=== PATIENT | male | born 1980 | race Caucasian/White ===

== ENCOUNTER 2020-06-04 15:42 | Emergency (ER) | payer MEDICAID ==
[~2020-06-04] VITALS: Ht 172.7 cm; Wt 78.9 kg
--- NOTE | 2020-06-04 15:55 | NUR ---
PT IS IN ROOM #1B. DR CREWS EVALUATED THE PT.
[2020-06-04] MEDS ORDERED: ASPIRIN 325 MG TABLET ONE (16:11)
[2020-06-04] MEDS ORDERED: NITROGLYCERIN 0.4 MG/TAB BOTTLE SL ONE ×2 (16:11→16:15)
[2020-06-04] MEDS ORDERED: ASPIRIN 325 MG TABLET PO ONE (16:15)
[2020-06-04] MEDS ORDERED: IV NORMAL SALINE 1000 ML BAG IV ONE (16:15)
[2020-06-04 16:27] LABS: BASOPHILS % (AUTO) 0.5 % (0.0-2.0); EOSINOPHILS # (AUTO) 0.4 K/uL (0.0-0.7); EOSINOPHILS % (AUTO) 7.5 % (0.0-7.0); HEMATOCRIT 43.7 % (36.7-47.1); HEMOGLOBIN 14.9 g/dL (12.5-16.3); LYMPHOCYTES % (AUTO) 36.1 % (20.5-51.5); MEAN CORPUSCULAR HEMOGLOBIN 30.1 uug (23.8-33.4); MEAN CORPUSCULAR HGB CONC 34 g/dL (32.5-36.3); MEAN CORPUSCULAR VOLUME 87.9 fL (73.0-96.2); MONOCYTES # (AUTO) 0.3 K/uL (2.0-10.0); NEUTROPHILS # (AUTO) 2.8 K/uL (1.8-8.9); NEUTROPHILS % (AUTO) 49.9 % (38.5-71.5); PLATELET COUNT (AUTO) 269 K/uL (152-348); RED BLOOD CELL COUNT(AUTO) 4.96 MIL/uL (4.06-5.63); WHITE BLOOD COUNT (AUTO) 5.6 K/uL (3.6-10.2)
[2020-06-04 16:33] LABS: POTASSIUM 3.8 mmol/L (3.5-5.1)
[2020-06-04 16:46] LABS: BILIRUBIN,DIRECT 0.2 mg/dL (0.0-0.2); BILIRUBIN,TOTAL 1.6 mg/dL (0.2-1.0); TOTAL PROTEIN, SERUM 7.8 g/dL (6.4-8.2)
--- NOTE | 2020-06-04 16:53 | NUR ---
IV removed. Catheter intact and site benign. Pressure and 4x4 gauze applied to site. No bleeding noted.
[2020-06-04 16:55] VITALS: BP 129/72
--- NOTE | 2020-06-04 16:55 | NUR ---
Patient discharged to home in stable condition. Written and verbal after care instructions given. Patient verbalizes understanding of instructions. Stressed follow up or return to ER for worsening s/s.
== END 2020-06-04 16:56 | disposition home or self-care (01) ==
LOC: ER 15:44
DX: R07.89 Other chest pain (principal); R94.31 Abnormal electrocardiogram [ECG] [EKG]
CPT/HCPCS: 36415; 70030-TC; 71045; 85025; 85730; 93005; A4663; J7030